=== PATIENT | male | born 1980 | race African-American/Black ===

== ENCOUNTER 2021-09-03 17:55 | Emergency (ER) | payer OTHER ==
[2021-09-03] MEDS ORDERED: CYCLOBENZAPRINE10 MG PO (21:38)
[2021-09-03] MEDS ORDERED: NAPROXEN500 MG PO (21:38)
== END 2021-09-03 21:42 | disposition home or self-care (01) ==
LOC: FER 17:55
DX: M54.50 Low back pain, unspecified (principal); I10 Essential (primary) hypertension; Z88.2 Allergy status to sulfonamides; V49.59XA Passenger injured in collision with other motor vehicles in traffic accident, initial encounter
CPT/HCPCS: 72110; 96372; J1100; J1885